=== PATIENT | female | born 1945 | race Caucasian/White ===

== ENCOUNTER 2021-09-25 13:30 | Inpatient (IN) ==
[2021-09-25] MEDS ORDERED: *HR* Warfarin 2.5 MG TABLET PO SCH (14:45)
[2021-09-25] MEDS: *HR* OxyCODONE Immed Rel 5 MG TABLET PO PRN (16:21)
[2021-09-25] MEDS: Acyclovir 200 MG CAPSULE PO SCH (16:22)
[2021-09-25] MEDS: *HR* Enoxaparin 100 MG/ML SYRINGE SQ SCH (16:22)
[2021-09-25] MEDS ORDERED: *HR* Warfarin 2.5 MG TABLET PO ONE (18:00)
[2021-09-25] MEDS ORDERED: Warfarin perPT PO PRN (18:00)
[2021-09-26] MEDS: Acyclovir 200 MG CAPSULE PO SCH ×4 (00:50→20:51)
[2021-09-26] MEDS: *HR* OxyCODONE Immed Rel 5 MG TABLET PO PRN ×3 (05:34→20:52)
[2021-09-26] MEDS: *HR* Enoxaparin 100 MG/ML SYRINGE SQ SCH ×2 (05:35→17:25)
[2021-09-26 07:44] LABS: INR 1.3
[2021-09-26] MEDS: Cholecalciferol (D-3) 1,000 UNIT (25MCG) TABLET PO SCH (09:21)
[2021-09-26] MEDS: Furosemide 40 MG TABLET PO SCH (09:21)
[2021-09-26] MEDS: Famotidine 20 MG TABLET PO SCH (09:21)
[2021-09-26] MEDS: Aspirin 81 MG TAB.CHEW PO SCH (09:21)
[2021-09-26] MEDS: amLODIPine 5 MG TABLET PO SCH (09:22)
[2021-09-26] MEDS: Acetaminophen 325 MG TABLET PO PRN (17:25)
[2021-09-26] MEDS ORDERED: *HR* Warfarin 2.5 MG TABLET PO ONE (18:00)
[2021-09-27] MEDS: *HR* Enoxaparin 100 MG/ML SYRINGE SQ SCH ×2 (06:33→17:24)
[2021-09-27] MEDS: *HR* OxyCODONE Immed Rel 5 MG TABLET PO PRN ×3 (06:33→20:32)
[2021-09-27 07:30] LABS: INR 1.5
[2021-09-27] MEDS: Aspirin 81 MG TAB.CHEW PO SCH (09:32)
[2021-09-27] MEDS: Famotidine 20 MG TABLET PO SCH (09:32)
[2021-09-27] MEDS: Furosemide 40 MG TABLET PO SCH (09:33)
[2021-09-27] MEDS: Cholecalciferol (D-3) 1,000 UNIT (25MCG) TABLET PO SCH (09:33)
[2021-09-27] MEDS: Acyclovir 200 MG CAPSULE PO SCH ×3 (09:33→20:30)
[2021-09-27] MEDS: amLODIPine 5 MG TABLET PO SCH (09:33)
[2021-09-27] MEDS: Acetaminophen 325 MG TABLET PO PRN ×2 (10:32→18:24)
[2021-09-27] MEDS ORDERED: *HR* Warfarin 3 MG TABLET PO ONE (18:00)
[2021-09-28] MEDS: Acetaminophen 325 MG TABLET PO PRN ×3 (02:46→16:10)
[2021-09-28] MEDS: *HR* Enoxaparin 100 MG/ML SYRINGE SQ SCH (05:37)
[2021-09-28] MEDS: *HR* OxyCODONE Immed Rel 5 MG TABLET PO PRN ×3 (06:51→19:39)
[2021-09-28 06:59] LABS: Prothrombin Time 22.4 Seconds (9.4-12.1)
[2021-09-28] MEDS: Famotidine 20 MG TABLET PO SCH (10:15)
[2021-09-28] MEDS: Aspirin 81 MG TAB.CHEW PO SCH (10:15)
[2021-09-28] MEDS: Acyclovir 200 MG CAPSULE PO SCH ×3 (10:16→19:39)
[2021-09-28] MEDS: amLODIPine 5 MG TABLET PO SCH (10:17)
[2021-09-28] MEDS: Cholecalciferol (D-3) 1,000 UNIT (25MCG) TABLET PO SCH (10:17)
[2021-09-28] MEDS: Furosemide 40 MG TABLET PO SCH (10:17)
[2021-09-28 16:19] LABS: Bilirubin,Urine Negative (Negative); Blood,Urine Large (Negative); Clarity,Urine Cloudy (Clear); Glucose,Urine (UA) Normal (Normal); Ketones,Urine 15 mg/dL (Negative); Leukocyte Esterase,Urine Large (Negative); Nitrite,Urine Positive (Negative); Protein,Urine 100 mg/dL (Neg-Trace); Specific Gravity,Urine >= 1.030 (1.010-1.025)
[2021-09-28 17:03] LABS: Color,Urine Dark Yellow (Yellow)
[2021-09-28 17:09] LABS: RBC,Urine TNTC per hpf (0-3); WBC,Urine TNTC per hpf (0-3)
[2021-09-28 17:10] LABS: Bacteria,Urine Many per hpf (None-Few); Mucus,Urine Moderate per lpf (None-Few); Squamous Epithelial Cell,Urine Moderate per hpf (None-Few); Transitional Epi Cells,Urine Moderate per hpf (None-Few)
[2021-09-28] MEDS ORDERED: *HR* Warfarin 2 MG TABLET PO ONE (18:00)
[2021-09-28] MEDS: Cefdinir 300 MG CAPSULE PO SCH (21:06)
[2021-09-29] MEDS: Acetaminophen 325 MG TABLET PO PRN ×3 (02:18→16:00)
[2021-09-29] MEDS: *HR* OxyCODONE Immed Rel 5 MG TABLET PO PRN ×3 (05:57→18:44)
[2021-09-29] MEDS: Cefdinir 300 MG CAPSULE PO SCH ×2 (08:03→19:50)
[2021-09-29] MEDS: Acyclovir 200 MG CAPSULE PO SCH ×3 (08:03→19:49)
[2021-09-29] MEDS: Cholecalciferol (D-3) 1,000 UNIT (25MCG) TABLET PO SCH (08:03)
[2021-09-29] MEDS: amLODIPine 5 MG TABLET PO SCH (08:03)
[2021-09-29] MEDS: Famotidine 20 MG TABLET PO SCH (08:03)
[2021-09-29] MEDS: Furosemide 40 MG TABLET PO SCH (08:03)
[2021-09-29] MEDS: Aspirin 81 MG TAB.CHEW PO SCH (08:04)
[2021-09-29 09:13] LABS: INR 1.9; Prothrombin Time 21.3 Seconds (9.4-12.1)
[2021-09-29] MEDS ORDERED: *HR* Warfarin 3 MG TABLET PO ONE (18:00)
[2021-09-30] MEDS: Acetaminophen 325 MG TABLET PO PRN ×4 (01:41→21:30)
[2021-09-30] MEDS: *HR* OxyCODONE Immed Rel 5 MG TABLET PO PRN ×3 (05:44→17:53)
[2021-09-30] MEDS: Cholecalciferol (D-3) 1,000 UNIT (25MCG) TABLET PO SCH (09:15)
[2021-09-30] MEDS: Aspirin 81 MG TAB.CHEW PO SCH (09:16)
[2021-09-30] MEDS: Acyclovir 200 MG CAPSULE PO SCH (09:16)
[2021-09-30] MEDS: Furosemide 40 MG TABLET PO SCH (09:17)
[2021-09-30] MEDS: amLODIPine 5 MG TABLET PO SCH (09:17)
[2021-09-30] MEDS: Famotidine 20 MG TABLET PO SCH (09:17)
[2021-09-30] MEDS: Cefdinir 300 MG CAPSULE PO SCH ×2 (09:17→20:29)
[2021-09-30 09:48] LABS: Prothrombin Time 22.7 Seconds (9.4-12.1)
[2021-09-30] MEDS ORDERED: *HR* Warfarin 3 MG TABLET PO ONE (18:00)
[2021-10-01] MEDS: Acetaminophen 325 MG TABLET PO PRN ×4 (03:34→21:59)
[2021-10-01] MEDS: *HR* OxyCODONE Immed Rel 5 MG TABLET PO PRN ×3 (06:54→19:00)
[2021-10-01 08:37] LABS: INR 2.2; Prothrombin Time 24.5 Seconds (9.4-12.1)
[2021-10-01] MEDS: Famotidine 20 MG TABLET PO SCH (08:44)
[2021-10-01] MEDS: Cholecalciferol (D-3) 1,000 UNIT (25MCG) TABLET PO SCH (08:44)
[2021-10-01] MEDS: Cefdinir 300 MG CAPSULE PO SCH ×2 (08:44→20:02)
[2021-10-01] MEDS: Aspirin 81 MG TAB.CHEW PO SCH (08:45)
[2021-10-01] MEDS: Furosemide 40 MG TABLET PO SCH (08:45)
[2021-10-01] MEDS: amLODIPine 5 MG TABLET PO SCH (08:45)
[2021-10-01] MEDS: Sennosides/Docusate Sodium TABLET PO SCH ×2 (09:00→20:11)
[2021-10-01 15:05] LABS: Basophils # 0.1 K/mcL (0.0-0.2); Basophils % 0.7 %; Eosinophils # 0.3 K/mcL (0.0-0.6); Eosinophils % 4.7 %; Hematocrit 32.3 % (35.3-44.9); Hemoglobin 10.3 g/dL (11.5-15.4); Immature Granulocytes % 0.4 % (0-4); Lymphocytes # 1.1 K/mcL (0.6-4.6); Lymphocytes % 15.8 %; Mean Corpuscular HGB Conc 31.9 g/dL (31.6-35.5); Mean Corpuscular Hemoglobin 29.8 pg (28.0-33.3); Mean Corpuscular Volume 93.4 fL (83.0-100.0); Mean Platelet Volume 11.4 fL (9.4-12.4); Monocytes # 0.7 K/mcL (0.0-1.3); Monocytes % 10.3 %; Neutrophils # 4.9 K/mcL (1.6-8.9); Platelet Count 387 K/mcL (140-400); Red Blood Count 3.46 M/mcL (3.82-4.97); Red Cell Distribution Width 14.7 % (11.5-14.5); Segmented Neutrophils % 68.1 %; White Blood Count 7.2 K/mcL (4.3-11.1)
[2021-10-01 15:13] LABS: BUN/Creatinine Ratio 22 (6-26); Blood Urea Nitrogen 11 mg/dL (8-23); Carbon Dioxide 34 mEq/L (23-29); Chloride 98 mEq/L (98-107); Glucose 95 mg/dL (70-105); Osmolality,Calculated 291 (280-300); Potassium 3.1 mEq/L (3.5-5.1); Sodium 141 mEq/L (136-145); eGFR For African Americans > 60 (> 60); eGFR For Non-African Americans > 60 (> 60)
[2021-10-01] MEDS ORDERED: *HR* Warfarin 3 MG TABLET PO ONE (18:00)
[2021-10-02] MEDS: Acetaminophen 325 MG TABLET PO PRN ×4 (03:59→22:35)
[2021-10-02] MEDS: *HR* OxyCODONE Immed Rel 5 MG TABLET PO PRN ×3 (06:58→19:30)
[2021-10-02 07:11] LABS: INR 2.5; Prothrombin Time 27.4 Seconds (9.4-12.1)
[2021-10-02] MEDS: Cefdinir 300 MG CAPSULE PO SCH ×2 (09:43→19:31)
[2021-10-02] MEDS: Furosemide 40 MG TABLET PO SCH (09:44)
[2021-10-02] MEDS: Sennosides/Docusate Sodium TABLET PO SCH ×2 (09:44→19:31)
[2021-10-02] MEDS: Famotidine 20 MG TABLET PO SCH (09:44)
[2021-10-02] MEDS: Cholecalciferol (D-3) 1,000 UNIT (25MCG) TABLET PO SCH (09:44)
[2021-10-02] MEDS: amLODIPine 5 MG TABLET PO SCH (09:44)
[2021-10-02] MEDS: Aspirin 81 MG TAB.CHEW PO SCH (09:45)
[2021-10-02] MEDS ORDERED: *HR* Warfarin 3 MG TABLET PO ONE (18:00)
[2021-10-03] MEDS: Acetaminophen 325 MG TABLET PO PRN ×3 (04:38→17:39)
[2021-10-03 06:15] LABS: INR 2.9; Prothrombin Time 31.9 Seconds (9.4-12.1)
[2021-10-03] MEDS: amLODIPine 5 MG TABLET PO SCH (07:47)
[2021-10-03] MEDS: Furosemide 40 MG TABLET PO SCH (07:47)
[2021-10-03] MEDS: *HR* OxyCODONE Immed Rel 5 MG TABLET PO PRN ×3 (07:47→20:50)
[2021-10-03] MEDS: Sennosides/Docusate Sodium TABLET PO SCH ×2 (07:47→20:51)
[2021-10-03] MEDS: Aspirin 81 MG TAB.CHEW PO SCH (07:47)
[2021-10-03] MEDS: Cefdinir 300 MG CAPSULE PO SCH ×2 (07:47→20:52)
[2021-10-03] MEDS: Famotidine 20 MG TABLET PO SCH (07:47)
[2021-10-03] MEDS: Cholecalciferol (D-3) 1,000 UNIT (25MCG) TABLET PO SCH (07:49)
[2021-10-03] MEDS ORDERED: *HR* Warfarin 1 MG TABLET PO ONE (18:00)
[2021-10-04] MEDS: *HR* OxyCODONE Immed Rel 5 MG TABLET PO PRN ×3 (03:44→18:15)
[2021-10-04 07:51] LABS: INR 2.9; Prothrombin Time 32.4 Seconds (9.4-12.1)
[2021-10-04] MEDS: Famotidine 20 MG TABLET PO SCH (08:04)
[2021-10-04] MEDS: Cefdinir 300 MG CAPSULE PO SCH ×2 (08:05→21:34)
[2021-10-04] MEDS: Aspirin 81 MG TAB.CHEW PO SCH (08:05)
[2021-10-04] MEDS: Acetaminophen 325 MG TABLET PO PRN ×3 (08:05→21:33)
[2021-10-04] MEDS: Cholecalciferol (D-3) 1,000 UNIT (25MCG) TABLET PO SCH (08:05)
[2021-10-04] MEDS: Sennosides/Docusate Sodium TABLET PO SCH ×2 (08:05→21:35)
[2021-10-04] MEDS: Furosemide 40 MG TABLET PO SCH (08:05)
[2021-10-04] MEDS: amLODIPine 5 MG TABLET PO SCH (08:05)
[2021-10-04] MEDS ORDERED: *HR* Warfarin 1 MG TABLET PO ONE (18:00)
[2021-10-05] MEDS: *HR* OxyCODONE Immed Rel 5 MG TABLET PO PRN ×3 (04:36→17:23)
[2021-10-05 06:37] LABS: INR 2.8; Prothrombin Time 30.5 Seconds (9.4-12.1)
[2021-10-05] MEDS: amLODIPine 5 MG TABLET PO SCH (08:06)
[2021-10-05] MEDS: Famotidine 20 MG TABLET PO SCH (08:06)
[2021-10-05] MEDS: Acetaminophen 325 MG TABLET PO PRN ×3 (08:06→21:40)
[2021-10-05] MEDS: Sennosides/Docusate Sodium TABLET PO SCH ×2 (08:06→21:40)
[2021-10-05] MEDS: Cefdinir 300 MG CAPSULE PO SCH (08:06)
[2021-10-05] MEDS: Cholecalciferol (D-3) 1,000 UNIT (25MCG) TABLET PO SCH (08:07)
[2021-10-05] MEDS: Furosemide 40 MG TABLET PO SCH (08:07)
[2021-10-05] MEDS: Aspirin 81 MG TAB.CHEW PO SCH (08:07)
[2021-10-05] MEDS: Budesonide/Formoterol 160/4.5 1 PUFF INH IH SCH ×2 (10:07→21:38)
[2021-10-05] MEDS ORDERED: *HR* Warfarin 1 MG TABLET PO ONE (18:00)
[2021-10-06] MEDS: *HR* OxyCODONE Immed Rel 5 MG TABLET PO PRN ×3 (04:22→17:48)
[2021-10-06 07:58] LABS: INR 2.1; Prothrombin Time 23.6 Seconds (9.4-12.1)
[2021-10-06] MEDS: amLODIPine 5 MG TABLET PO SCH (08:19)
[2021-10-06] MEDS: Cholecalciferol (D-3) 1,000 UNIT (25MCG) TABLET PO SCH (08:19)
[2021-10-06] MEDS: Sennosides/Docusate Sodium TABLET PO SCH ×2 (08:19→19:54)
[2021-10-06] MEDS: Furosemide 40 MG TABLET PO SCH (08:19)
[2021-10-06] MEDS: Aspirin 81 MG TAB.CHEW PO SCH (08:19)
[2021-10-06] MEDS: Famotidine 20 MG TABLET PO SCH (08:19)
[2021-10-06] MEDS: Acetaminophen 325 MG TABLET PO PRN ×3 (08:20→20:42)
[2021-10-06] MEDS: Budesonide/Formoterol 160/4.5 1 PUFF INH IH SCH ×2 (11:01→20:01)
[2021-10-06] MEDS ORDERED: *HR* Warfarin 2 MG TABLET PO ONE (18:00)
[2021-10-07] MEDS: *HR* OxyCODONE Immed Rel 5 MG TABLET PO PRN ×3 (03:44→17:06)
[2021-10-07] MEDS: Acetaminophen 325 MG TABLET PO PRN ×3 (07:15→20:25)
[2021-10-07 08:31] LABS: INR 1.9; Prothrombin Time 21.4 Seconds (9.4-12.1)
[2021-10-07] MEDS: Sennosides/Docusate Sodium TABLET PO SCH ×2 (09:00→20:25)
[2021-10-07] MEDS: Furosemide 40 MG TABLET PO SCH (09:00)
[2021-10-07] MEDS: Cholecalciferol (D-3) 1,000 UNIT (25MCG) TABLET PO SCH (09:00)
[2021-10-07] MEDS: Famotidine 20 MG TABLET PO SCH (09:00)
[2021-10-07] MEDS: Aspirin 81 MG TAB.CHEW PO SCH (09:00)
[2021-10-07] MEDS: amLODIPine 5 MG TABLET PO SCH (09:00)
[2021-10-07] MEDS: Budesonide/Formoterol 160/4.5 1 PUFF INH IH SCH ×2 (11:08→22:31)
[2021-10-07] MEDS ORDERED: *HR* Warfarin 2 MG TABLET PO ONE (18:00)
[2021-10-08] MEDS: *HR* OxyCODONE Immed Rel 5 MG TABLET PO PRN ×3 (04:30→17:33)
[2021-10-08 08:03] LABS: INR 1.8; Prothrombin Time 20.4 Seconds (9.4-12.1)
[2021-10-08] MEDS: amLODIPine 5 MG TABLET PO SCH (08:59)
[2021-10-08] MEDS: Famotidine 20 MG TABLET PO SCH (08:59)
[2021-10-08] MEDS: Sennosides/Docusate Sodium TABLET PO SCH ×2 (08:59→21:03)
[2021-10-08] MEDS: Cholecalciferol (D-3) 1,000 UNIT (25MCG) TABLET PO SCH (08:59)
[2021-10-08] MEDS: Aspirin 81 MG TAB.CHEW PO SCH (08:59)
[2021-10-08] MEDS: Acetaminophen 325 MG TABLET PO PRN ×3 (09:10→21:02)
[2021-10-08] MEDS: Budesonide/Formoterol 160/4.5 1 PUFF INH IH SCH (10:18)
[2021-10-08] MEDS ORDERED: *HR* Warfarin 3 MG TABLET PO ONE (18:00)
[2021-10-09] MEDS: *HR* OxyCODONE Immed Rel 5 MG TABLET PO PRN ×3 (03:40→18:21)
[2021-10-09] MEDS: Acetaminophen 325 MG TABLET PO PRN ×3 (06:51→21:22)
[2021-10-09 08:11] LABS: INR 2.2; Prothrombin Time 24.8 Seconds (9.4-12.1)
[2021-10-09] MEDS: Cholecalciferol (D-3) 1,000 UNIT (25MCG) TABLET PO SCH (08:29)
[2021-10-09] MEDS: Famotidine 20 MG TABLET PO SCH (08:29)
[2021-10-09] MEDS: Sennosides/Docusate Sodium TABLET PO SCH ×2 (08:29→21:23)
[2021-10-09] MEDS: Aspirin 81 MG TAB.CHEW PO SCH (08:29)
[2021-10-09] MEDS: amLODIPine 5 MG TABLET PO SCH (08:29)
[2021-10-09] MEDS ORDERED: *HR* Warfarin 2.5 MG TABLET PO ONE (18:00)
[2021-10-10] MEDS: *HR* OxyCODONE Immed Rel 5 MG TABLET PO PRN ×2 (04:02→12:11)
[2021-10-10 08:43] LABS: INR 2.7; Prothrombin Time 30.2 Seconds (9.4-12.1)
[2021-10-10] MEDS: Aspirin 81 MG TAB.CHEW PO SCH (08:44)
[2021-10-10] MEDS: Famotidine 20 MG TABLET PO SCH (08:44)
[2021-10-10] MEDS: Cholecalciferol (D-3) 1,000 UNIT (25MCG) TABLET PO SCH (08:44)
[2021-10-10] MEDS: amLODIPine 5 MG TABLET PO SCH (08:44)
[2021-10-10] MEDS: Furosemide 40 MG TABLET PO SCH (08:49)
[2021-10-10] MEDS: Sennosides/Docusate Sodium TABLET PO SCH ×2 (08:51→22:24)
[2021-10-10] MEDS ORDERED: *HR* OxyCODONE Immed Rel 5 MG TABLET PO PRN (13:40)
[2021-10-10] MEDS: Acetaminophen 325 MG TABLET PO PRN ×2 (16:23→22:24)
[2021-10-10] MEDS ORDERED: *HR* Warfarin 1 MG TABLET PO ONE (18:00)
[2021-10-11 06:31] LABS: INR 2.9; Prothrombin Time 32.5 Seconds (9.4-12.1)
[2021-10-11 07:22] VITALS: BP 153/71; PULSE 71; RESP 18; TEMP 97.6
[2021-10-11] MEDS: Aspirin 81 MG TAB.CHEW PO SCH (09:00)
[2021-10-11] MEDS: Sennosides/Docusate Sodium TABLET PO SCH (09:00)
[2021-10-11] MEDS: amLODIPine 5 MG TABLET PO SCH (09:00)
[2021-10-11] MEDS: Furosemide 40 MG TABLET PO SCH (09:00)
[2021-10-11] MEDS: Cholecalciferol (D-3) 1,000 UNIT (25MCG) TABLET PO SCH (09:00)
[2021-10-11] MEDS: Famotidine 20 MG TABLET PO SCH (09:00)
[2021-10-11] MEDS: Acetaminophen 325 MG TABLET PO PRN (10:48)
[2021-10-11 12:24] VITALS: O2SAT 93
[2021-10-11] MEDS ORDERED: *HR* Warfarin 0.5 MG TABLET PO ONE (18:00)
== END 2021-10-11 13:39 | disposition home health service (06) | DRG 536 ==
LOC: INPPIK 13:36
PROVIDERS: ADMIT Internal Medicine; ATTEND Internal Medicine